=== PATIENT | female | born 1940 | race Caucasian/White ===

== ENCOUNTER 2023-09-19 11:42 | Inpatient (IN) | payer MEDICARE, SELFPAY ==
[2023-09-19 12:47] LABS: #Basophils 0.1 thou/uL (0.0-0.2); #Eosinphils 0.1 thou/uL (0.0-0.7); #Monocytes 0.6 thou/uL (0.11-0.59); #Neutrophils 5.4 thou/uL (1.40-6.50); %Basophils 0.7 % (0.0-1.0); %Eosinophils 1.6 % (0.0-10.0); %Lymphocytes 19.2 % (21.0-51.0); %Monocytes 7.2 % (0.0-10.0); %Neutrophils 70.9 % (42.0-75.0); Hematocrit 43.8 % (36.0-47.0); Hemoglobin 14.5 g/dL (12.0-16.0); Mean Corpuscular HGB CONC 33.1 g/dL (32.0-36.0); Mean Corpuscular Hemoglobin 31.3 pg (27.0-31.0); Mean Corpuscular Volume 94.4 fl (78.0-98.0); Mean Platelet Volume 11.4 fL (7.4-10.4); Platelet Count 205 10x3/uL (130-400); RBC Distribution Width 12.7 % (11.5-14.5); Red Blood Cell (RBC) Count 4.64 mill/uL (4.20-5.40); White Blood Cell (WBC) Count 7.6 10x3/uL (4.8-10.8)
[2023-09-19] MEDS ORDERED: Morphine 4 MG/ML VIAL ONE (13:21)
[2023-09-19] MEDS ORDERED: Boostrix 0.5 ML (Tdap) VIAL (>/=7 yrs of age) ONE (13:21)
[2023-09-19 13:22] LABS: ALT (SGPT) 15 U/L (8-55); AST (SGOT) 25 U/L (5-34); Albumin 3.8 g/dL (3.4-4.8); Alkaline Phosphatase 61 U/L (40-110); Anion Gap 13 mmol/L (10-20); BUN (Urea Nitrogen) 18 mg/dL (9.8-20.1); Bilirubin, Total 1.5 mg/dL (0.2-1.2); Calc. Creatinine Clearance 0 mL/min (70-130); Calcium 9.4 mg/dL (7.8-10.44); Carbon Dioxide 26 mmol/L (23-31); Chloride 105 mmol/L (98-107); Estimated GFR 69; Globulin 3.1 g/dL (2.4-3.5); Glucose 85 mg/dL (83-110); Potassium 4.3 mmol/L (3.5-5.1); Protein, Total 6.9 g/dL (5.8-8.1); Sodium 140 mmol/L (136-145)
[2023-09-19] MEDS ORDERED: Glucagon 1 MG/ML KIT IM PRN (15:00)
[2023-09-19] MEDS ORDERED: Ondansetron PF 4 MG/2 ML Vial IVP PRN (15:00)
[2023-09-19] MEDS ORDERED: Ipratropium/Albuterol 3 ML NEB NEB PRN (15:00)
[2023-09-19] MEDS ORDERED: Acetaminophen 325 MG TAB PO PRN (15:00)
[2023-09-19] MEDS ORDERED: Ondansetron ODT 4 MG TAB PO PRN (15:00)
[2023-09-19] MEDS ORDERED: Dextrose 5% in Water 1,000 ML IV PRN (15:00)
[2023-09-19] MEDS ORDERED: Dextrose 50% Abboject 50 ML SYRINGE SLOW IVP PRN (15:00)
[2023-09-19] MEDS ORDERED: hydrALAZINE 20 MG/ML VIAL SLOW IVP PRN (17:27)
[2023-09-19] MEDS: Sodium Chloride 0.9% 1,000 ML IV SCH (19:39)
[2023-09-19 21:52] VITALS: BMI 21.7
[2023-09-20 04:46] LABS: #Basophils 0.1 thou/uL (0.0-0.2); #Eosinphils 0.1 thou/uL (0.0-0.7); #Monocytes 0.9 thou/uL (0.11-0.59); #Neutrophils 8.2 thou/uL (1.40-6.50); %Basophils 0.5 % (0.0-1.0); %Eosinophils 0.9 % (0.0-10.0); %Lymphocytes 11.4 % (21.0-51.0); %Monocytes 8.8 % (0.0-10.0); %Neutrophils 78.1 % (42.0-75.0); Hematocrit 42.8 % (36.0-47.0); Hemoglobin 13.4 g/dL (12.0-16.0); Mean Corpuscular HGB CONC 31.3 g/dL (32.0-36.0); Mean Corpuscular Hemoglobin 31.4 pg (27.0-31.0); Mean Platelet Volume 11.5 fL (7.4-10.4); Platelet Count 154 10x3/uL (130-400); RBC Distribution Width 12.5 % (11.5-14.5); Red Blood Cell (RBC) Count 4.27 mill/uL (4.20-5.40); White Blood Cell (WBC) Count 10.5 10x3/uL (4.8-10.8)
[2023-09-20 05:03] LABS: Anion Gap 15 mmol/L (10-20); BUN (Urea Nitrogen) 15 mg/dL (9.8-20.1); Calc. Creatinine Clearance 56 mL/min (70-130); Calcium 8.7 mg/dL (7.8-10.44); Carbon Dioxide 21 mmol/L (23-31); Chloride 105 mmol/L (98-107); Estimated GFR 83; Glucose 85 mg/dL (83-110); Potassium 4.6 mmol/L (3.5-5.1); Sodium 136 mmol/L (136-145)
[2023-09-20 05:20] LABS: Mean Corpuscular Volume 100.2 fl (78.0-98.0)
[2023-09-20] MEDS ORDERED: fentaNYL PF 100 MCG/2 ML SYRINGE ONE (07:31)
[2023-09-20] MEDS ORDERED: PROPOFOL 20 ML ONE (07:31)
[2023-09-20] MEDS ORDERED: Lidocaine 2% PF 5 ML VIAL ONE (07:32)
[2023-09-20] MEDS ORDERED: Phenylephrine 40 MG/NS 250 ML 250 ML ONE (07:34)
[2023-09-20] MEDS ORDERED: Rocuronium Bromide 10 MG/ML (10ML VIAL) ONE (07:44)
[2023-09-20] MEDS ORDERED: Non-Formulary Item 1 EACH (Albuterol Sulfate [Proair Digihaler] 90 MCG Aer.Pw.Bas) INH PRN (07:59)
[2023-09-20] MEDS ORDERED: CEFAZOLIN 2 GM in Sodium Chloride 0.9% 100 ML IVPB SCH (08:00)
[2023-09-20] MEDS ORDERED: ePHEDrine Sulfate 50 MG/10 ML VIAL ONE (08:23)
[2023-09-20] MEDS ORDERED: CEFAZOLIN 1 GM VIAL ONE (08:34)
[2023-09-20] MEDS: Memantine 10 MG TAB PO SCH ×2 (09:00→20:07)
[2023-09-20] MEDS ORDERED: Propranolol 10 MG TAB PO SCH (09:00)
[2023-09-20] MEDS ORDERED: FLU VACC QS2023(65UP)/MF59C/PF 60 MCG/0.5 ML SYRINGE IM ONE (09:00)
[2023-09-20] MEDS ORDERED: SUGAMMADEX SODIUM 200 MG/2 ML VIAL ONE (09:24)
[2023-09-20] MEDS ORDERED: Promethazine HCl 25 MG/ML VIAL IM PRN (09:39)
[2023-09-20] MEDS ORDERED: Ondansetron HCl/PF 4 MG/2 ML Vial IVP PRN (09:39)
[2023-09-20] MEDS ORDERED: Electrolyte Replacement Protocol FS PRN (11:45)
[2023-09-20] MEDS ORDERED: Electrolyte Replacement Protocol 1 EACH FS SCH (11:45)
[2023-09-20] MEDS ORDERED: Ibuprofen 600 MG TAB PO PRN (11:46)
[2023-09-20] MEDS: Sodium Chloride 0.9% 1,000 ML IV SCH (12:52)
[2023-09-20 13:07] LABS: Magnesium 2.7 mg/dL (1.6-2.6)
[2023-09-20 13:23] LABS: Free T4 (Free Thyroxine) 1.29 ng/dL (0.70-1.48)
[2023-09-20] MEDS: CEFAZOLIN 2 GM in Sodium Chloride 0.9% 100 ML IVPB SCH (17:40)
[2023-09-20] MEDS: Atorvastatin Calcium 40 MG TAB PO SCH (20:07)
[2023-09-21] MEDS: CEFAZOLIN 2 GM in Sodium Chloride 0.9% 100 ML IVPB SCH (05:10)
[2023-09-21] MEDS: Propranolol 10 MG TAB PO SCH ×3 (05:55→21:57)
[2023-09-21] MEDS ORDERED: Levothyroxine Sodium 112 MCG TAB PO SCH (06:00)
[2023-09-21 06:07] LABS: Anion Gap 14 mmol/L (10-20); BUN (Urea Nitrogen) 18 mg/dL (9.8-20.1); Calc. Creatinine Clearance 48 mL/min (70-130); Calcium 8.3 mg/dL (7.8-10.44); Carbon Dioxide 20 mmol/L (23-31); Chloride 106 mmol/L (98-107); Estimated GFR 69; Glucose 123 mg/dL (83-110); Magnesium 1.9 mg/dL (1.6-2.6); Potassium 3.6 mmol/L (3.5-5.1); Sodium 136 mmol/L (136-145)
[2023-09-21] MEDS ORDERED: Magnesium 2 GM/50 ML(in water) 2 GM in Premix 1 BAG IVPB SCH (08:00)
[2023-09-21] MEDS ORDERED: traMADol HCl 50 MG TAB PO PRN (08:17)
[2023-09-21] MEDS: Acetaminophen 500 MG TAB PO SCH ×3 (08:57→21:58)
[2023-09-21] MEDS: Polyethylene Glycol 3350 17 GM Packet PO SCH (08:57)
[2023-09-21] MEDS: Lactulose 20 GM (30 mL) UDCUP PO SCH ×3 (08:59→21:59)
[2023-09-21] MEDS: Senokot S 8.6-50 MG TAB PO SCH ×2 (08:59→21:59)
[2023-09-21] MEDS: Gabapentin 100 MG CAP PO SCH ×2 (09:00→21:57)
[2023-09-21] MEDS: Sodium Chloride 0.9% 1,000 ML IV SCH (09:01)
[2023-09-21] MEDS: Memantine 10 MG TAB PO SCH ×2 (09:02→21:57)
[2023-09-21] MEDS: Potassium Chloride 20 MEQ in Premix 1 BAG IVPB SCH ×2 (18:04→21:59)
[2023-09-21] MEDS: Levothyroxine Sodium 100 MCG TAB PO SCH (20:26)
[2023-09-21] MEDS: Atorvastatin Calcium 40 MG TAB PO SCH (21:57)
[2023-09-22 05:15] LABS: Anion Gap 12 mmol/L (10-20); BUN (Urea Nitrogen) 14 mg/dL (9.8-20.1); Calc. Creatinine Clearance 55 mL/min (70-130); Calcium 8.3 mg/dL (7.8-10.44); Carbon Dioxide 18 mmol/L (23-31); Chloride 112 mmol/L (98-107); Estimated GFR 82; Glucose 98 mg/dL (83-110); Magnesium 2.5 mg/dL (1.6-2.6); Potassium 4.1 mmol/L (3.5-5.1); Sodium 138 mmol/L (136-145)
[2023-09-22] MEDS: Levothyroxine Sodium 100 MCG TAB PO SCH (05:27)
[2023-09-22] MEDS: Acetaminophen 500 MG TAB PO SCH ×4 (05:27→20:11)
[2023-09-22 08:11] LABS: #Eosinphils 0.1 thou/uL (0.0-0.7); #Monocytes 0.9 thou/uL (0.11-0.59); #Neutrophils 7.5 thou/uL (1.40-6.50); %Basophils 0.3 % (0.0-1.0); %Eosinophils 1.3 % (0.0-10.0); %Lymphocytes 11.1 % (21.0-51.0); %Monocytes 9.2 % (0.0-10.0); %Neutrophils 77.8 % (42.0-75.0); Hematocrit 32.2 % (36.0-47.0); Hemoglobin 10.2 g/dL (12.0-16.0); Mean Corpuscular HGB CONC 31.7 g/dL (32.0-36.0); Mean Corpuscular Hemoglobin 31.9 pg (27.0-31.0); Mean Corpuscular Volume 100.6 fl (78.0-98.0); Platelet Count 137 10x3/uL (130-400); RBC Distribution Width 12.8 % (11.5-14.5); White Blood Cell (WBC) Count 9.7 10x3/uL (4.8-10.8)
[2023-09-22] MEDS: Memantine 10 MG TAB PO SCH ×2 (08:36→20:11)
[2023-09-22] MEDS: Gabapentin 100 MG CAP PO SCH ×2 (08:36→20:11)
[2023-09-22] MEDS: Propranolol 10 MG TAB PO SCH ×2 (08:37→20:11)
[2023-09-22] MEDS: Polyethylene Glycol 3350 17 GM Packet PO SCH (08:37)
[2023-09-22] MEDS: Senokot S 8.6-50 MG TAB PO SCH ×2 (08:37→20:11)
[2023-09-22] MEDS: Lactulose 20 GM (30 mL) UDCUP PO SCH ×3 (08:38→20:45)
[2023-09-22] MEDS: Aspirin 81 mg Enteric Coated Tablet PO SCH ×2 (09:34→20:11)
[2023-09-22] MEDS: traMADol HCl 50 MG TAB PO SCH ×3 (13:03→23:04)
[2023-09-22] MEDS: Atorvastatin Calcium 40 MG TAB PO SCH (20:11)
[2023-09-23] MEDS: Acetaminophen 500 MG TAB PO SCH ×3 (02:44→16:11)
[2023-09-23] MEDS: Levothyroxine Sodium 100 MCG TAB PO SCH (05:40)
[2023-09-23] MEDS: traMADol HCl 50 MG TAB PO SCH ×2 (05:40→12:43)
[2023-09-23 06:24] LABS: Anion Gap 7 mmol/L (10-20); BUN (Urea Nitrogen) 15 mg/dL (9.8-20.1); Calc. Creatinine Clearance 61 mL/min (70-130); Calcium 8.1 mg/dL (7.8-10.44); Carbon Dioxide 24 mmol/L (23-31); Chloride 109 mmol/L (98-107); Estimated GFR 86; Glucose 91 mg/dL (83-110); Potassium 3.9 mmol/L (3.5-5.1); Sodium 136 mmol/L (136-145)
[2023-09-23] MEDS ORDERED: Magnesium 2 GM/50 ML(in water) 2 GM in Premix 1 BAG IVPB SCH (08:00)
[2023-09-23] MEDS: Polyethylene Glycol 3350 17 GM Packet PO SCH (09:44)
[2023-09-23] MEDS: Propranolol 10 MG TAB PO SCH (09:45)
[2023-09-23] MEDS: Senokot S 8.6-50 MG TAB PO SCH (09:45)
[2023-09-23] MEDS: Lactulose 20 GM (30 mL) UDCUP PO SCH ×2 (09:45→16:14)
[2023-09-23] MEDS: Aspirin 81 mg Enteric Coated Tablet PO SCH (09:46)
[2023-09-23] MEDS: Memantine 10 MG TAB PO SCH (09:46)
[2023-09-23] MEDS: Gabapentin 100 MG CAP PO SCH (09:46)
[2023-09-23 12:53] VITALS: BP 127/69; TEMP 97.9
== END 2023-09-23 16:20 | DRG 481 ==
LOC: ERS 11:42 → SJJU 15:00 → OBSVTOIN 15:00 → 2NO 19:33 → SURG A 09-22 16:56
PROVIDERS: ADMIT Surgery; ATTEND Surgery
PROC: 0QS606Z Reposition Right Upper Femur with Intramedullary Internal Fixation Device, Open Approach (ICD-10-PCS; principal; 2023-09-20)
PROC: 3E033XZ Introduction of Vasopressor into Peripheral Vein, Percutaneous Approach (ICD-10-PCS; 2023-09-20)
DX: S72.144A Nondisplaced intertrochanteric fracture of right femur, initial encounter for closed fracture (principal); D62 Acute posthemorrhagic anemia; I48.92 Unspecified atrial flutter; S22.029A Unspecified fracture of second thoracic vertebra, initial encounter for closed fracture; Z66 Do not resuscitate; S01.91XA Laceration without foreign body of unspecified part of head, initial encounter; S09.90XA Unspecified injury of head, initial encounter; I10 Essential (primary) hypertension; E03.9 Hypothyroidism, unspecified; F03.90 Unspecified dementia, unspecified severity, without behavioral disturbance, psychotic disturbance, mood disturbance, and anxiety; G89.11 Acute pain due to trauma; S42.009D Fracture of unspecified part of unspecified clavicle, subsequent encounter for fracture with routine healing; S22.49XD Multiple fractures of ribs, unspecified side, subsequent encounter for fracture with routine healing
CPT/HCPCS: 36415; 36416; 70450; 71045; 72125; 72170; 72192; 80048; 80053; 82607; 83735; 84439; 84443; 84481; 85025; 86850; 86900; 86901; 90471; 90715; 93005; 93010; 93306; 96374; C1713; J0690; J2001; J2270; J2704; J3475; J3480; J3490; J7050

== ENCOUNTER 2023-10-30 08:30 | Inpatient (IN) | payer MEDICARE ==
[2023-10-30] MEDS ORDERED: Ondansetron PF 4 MG/2 ML Vial ONE (09:03)
[2023-10-30 09:08] LABS: #Monocytes 0.6 thou/uL (0.11-0.59); #Neutrophils 17.7 thou/uL (1.40-6.50); %Basophils 0.2 % (0.0-1.0); %Lymphocytes 2.6 % (21.0-51.0); %Monocytes 3.1 % (0.0-10.0); %Neutrophils 93.5 % (42.0-75.0); Hematocrit 37.8 % (36.0-47.0); Hemoglobin 12.2 g/dL (12.0-16.0); Mean Corpuscular HGB CONC 32.3 g/dL (32.0-36.0); Mean Corpuscular Hemoglobin 30.5 pg (27.0-31.0); Mean Corpuscular Volume 94.5 fl (78.0-98.0); Mean Platelet Volume 11.5 fL (7.4-10.4); Platelet Count 268 10x3/uL (130-400); RBC Distribution Width 14.4 % (11.5-14.5); White Blood Cell (WBC) Count 18.9 10x3/uL (4.8-10.8)
[2023-10-30 09:21] LABS: PTT 33.1 sec (22.9-36.1)
[2023-10-30 09:22] LABS: Bacteria/HPF None Seen HPF (None Seen); Bilirubin Negative (Negative); Blood, Urine Negative (Negative); CAUTI Indications for Culture Alt mental st,lethar; Clarity Turbid (Clear); Glucose, Urine (Dipstick) Normal (Negative); Ketone, Urine Negative (Negative); Leukocyte Negative Leu/uL (Negative); Nitrite Negative (Negative); Protein, Urine (Dipstick) 20 mg/dL (Neg-Trace); Specific Gravity, Urine 1.021 (1.002-1.036); Squamous Epithelial 0-3 HPF (0-3)
[2023-10-30 09:33] LABS: RBC/HPF None Seen HPF (0-3)
[2023-10-30 09:34] LABS: WBC/HPF 0-3 HPF (0-3)
[2023-10-30 09:36] LABS: Urine Culture Reflex No No
[2023-10-30 09:37] LABS: ALT (SGPT) 685 U/L (8-55); AST (SGOT) 742 U/L (5-34); Albumin 3.3 g/dL (3.4-4.8); Alkaline Phosphatase 581 U/L (40-110); Anion Gap 14 mmol/L (10-20); BUN (Urea Nitrogen) 16 mg/dL (9.8-20.1); Bilirubin, Total 2.8 mg/dL (0.2-1.2); Calc. Creatinine Clearance 0 mL/min (70-130); Calcium 8.8 mg/dL (7.8-10.44); Carbon Dioxide 22 mmol/L (23-31); Chloride 102 mmol/L (98-107); Estimated GFR 57; Globulin 3.5 g/dL (2.4-3.5); Glucose 160 mg/dL (83-110); Protein, Total 6.8 g/dL (5.8-8.1); Sodium 133 mmol/L (136-145); Troponin I Less than 0.010 ng/mL (< 0.028)
[2023-10-30] MEDS ORDERED: Vancomycin 1 GM/200 ML (FROZEN) BAG ONE (09:47)
[2023-10-30] MEDS ORDERED: Sodium Chloride 0.9% 100 ML ONE (09:47)
[2023-10-30] MEDS ORDERED: Cefepime 2 GM VIAL ONE (09:47)
[2023-10-30] MEDS ORDERED: Promethazine HCl 25 MG/ML VIAL IM PRN (12:50)
[2023-10-30] MEDS ORDERED: Ondansetron PF 4 MG/2 ML Vial IVP PRN (12:56)
[2023-10-30] MEDS ORDERED: Iopamidol-370 76% 500 ML MDV (1 ML CHARGE) ONE (14:12)
[2023-10-30] MEDS: Piperacillin/Tazobactam 3.375 GM in Sodium Chloride 0.9% 100 ML IVPB SCH ×3 (14:47→19:58)
[2023-10-30] MEDS: Sodium Chloride 0.9% 1,000 ML IV SCH (14:47)
[2023-10-30 14:58] LABS: ALT (SGPT) 586 U/L (8-55); AST (SGOT) 575 U/L (5-34); Albumin 3.3 g/dL (3.4-4.8); Alkaline Phosphatase 524 U/L (40-110); Bilirubin, Direct 2.1 mg/dL (0.1-0.3); Bilirubin, Total 3.3 mg/dL (0.2-1.2); Lipase 103 U/L (8-78); Protein, Total 6.2 g/dL (5.8-8.1)
[2023-10-30] MEDS ORDERED: FLU VACC QS2023(65UP)/MF59C/PF 60 MCG/0.5 ML SYRINGE IM ONE (17:30)
[2023-10-30] MEDS: Fluconazole 100 MG TAB PO SCH (18:30)
[2023-10-30] MEDS: Memantine 10 MG TAB PO SCH (19:59)
[2023-10-30] MEDS: Famotidine/PF 20 mg/2ml Vial SLOW IVP SCH (19:59)
[2023-10-31 05:22] LABS: #Eosinphils 0.1 thou/uL (0.0-0.7); #Monocytes 0.5 thou/uL (0.11-0.59); #Neutrophils 7.1 thou/uL (1.40-6.50); %Basophils 0.3 % (0.0-1.0); %Eosinophils 0.8 % (0.0-10.0); %Neutrophils 80.6 % (42.0-75.0); Hematocrit 33.7 % (36.0-47.0); Hemoglobin 10.4 g/dL (12.0-16.0); Mean Corpuscular HGB CONC 30.9 g/dL (32.0-36.0); Mean Corpuscular Hemoglobin 30.3 pg (27.0-31.0); Mean Platelet Volume 11.4 fL (7.4-10.4); Platelet Count 220 10x3/uL (130-400); RBC Distribution Width 14.7 % (11.5-14.5); Red Blood Cell (RBC) Count 3.43 mill/uL (4.20-5.40); White Blood Cell (WBC) Count 8.8 10x3/uL (4.8-10.8)
[2023-10-31] MEDS: Levothyroxine Sodium 100 MCG TAB PO SCH (05:32)
[2023-10-31 05:35] LABS: ALT (SGPT) 430 U/L (8-55); AST (SGOT) 371 U/L (5-34); Acetaminophen Less than 10 mcg/mL (10.0-30.0); Albumin 2.9 g/dL (3.4-4.8); Alkaline Phosphatase 396 U/L (40-110); Anion Gap 9 mmol/L (10-20); BUN (Urea Nitrogen) 10 mg/dL (9.8-20.1); Bilirubin, Direct 1.6 mg/dL (0.1-0.3); Bilirubin, Total 2.2 mg/dL (0.2-1.2); Calc. Creatinine Clearance 47 mL/min (70-130); Calcium 8.3 mg/dL (7.8-10.44); Carbon Dioxide 24 mmol/L (23-31); Chloride 109 mmol/L (98-107); Estimated GFR 69; Glucose 89 mg/dL (83-110); Iron 30 ug/dL (50-170); Iron Binding Capacity, Total 176 mcg/dL (265-497); Lipase 47 U/L (8-78); Potassium 3.9 mmol/L (3.5-5.1); Protein, Total 5.5 g/dL (5.8-8.1); Sodium 138 mmol/L (136-145)
[2023-10-31 05:36] LABS: Immunoglob - G (Total IgG) 983 mg/dL (Not Available); Immunoglob - M (Total IgM) 184 mg/dL (33-293)
[2023-10-31 05:41] LABS: Mean Corpuscular Volume 98.3 fl (78.0-98.0)
[2023-10-31 06:05] LABS: HBCM Index 0.12 S/CO (0-0.79); HBSAg Index 0.27 S/CO (0-0.99); Hep A IgM AB Non-Reactive S/CO (NonReactive); Hep A IgM S/CO 0.11 S/CO (0-0.79); Hep B Surf Ag Non-Reactive S/CO (NonReactive); Hep C IgG Ab Non-Reactive S/CO (NonReactive); Hep C Index 0.19 S/CO (0-0.79); Hepatitis B Core IgM Abs Non-Reactive S/CO (NonReactive)
[2023-10-31 06:28] LABS: Ferritin 2456.54 ng/mL (10-291)
[2023-10-31] MEDS: Atorvastatin Calcium 40 MG TAB PO SCH (09:05)
[2023-10-31] MEDS: Fluconazole 100 MG TAB PO SCH (09:05)
[2023-10-31] MEDS: Propranolol 10 MG TAB PO SCH (20:04)
[2023-10-31] MEDS: Gabapentin 100 MG CAP PO SCH (20:05)
[2023-11-01 04:16] LABS: #Eosinphils 0.1 thou/uL (0.0-0.7); #Monocytes 0.6 thou/uL (0.11-0.59); #Neutrophils 5.7 thou/uL (1.40-6.50); %Basophils 0.4 % (0.0-1.0); %Eosinophils 1.7 % (0.0-10.0); %Lymphocytes 16.7 % (21.0-51.0); %Monocytes 7.1 % (0.0-10.0); %Neutrophils 73.7 % (42.0-75.0); Hematocrit 34.6 % (36.0-47.0); Hemoglobin 10.9 g/dL (12.0-16.0); Mean Corpuscular HGB CONC 31.5 g/dL (32.0-36.0); Mean Corpuscular Hemoglobin 30.6 pg (27.0-31.0); Mean Corpuscular Volume 97.2 fl (78.0-98.0); Mean Platelet Volume 11.7 fL (7.4-10.4); Platelet Count 244 10x3/uL (130-400); RBC Distribution Width 14.2 % (11.5-14.5); Red Blood Cell (RBC) Count 3.56 mill/uL (4.20-5.40); White Blood Cell (WBC) Count 7.8 10x3/uL (4.8-10.8)
[2023-11-01 04:44] LABS: ALT (SGPT) 300 U/L (8-55); AST (SGOT) 204 U/L (5-34); Alkaline Phosphatase 349 U/L (40-110); Anion Gap 9 mmol/L (10-20); BUN (Urea Nitrogen) 6 mg/dL (9.8-20.1); Bilirubin, Total 1.7 mg/dL (0.2-1.2); Calc. Creatinine Clearance 50 mL/min (70-130); Calcium 8.2 mg/dL (7.8-10.44); Carbon Dioxide 21 mmol/L (23-31); Chloride 109 mmol/L (98-107); Estimated GFR 76; Globulin 2.7 g/dL (2.4-3.5); Glucose 87 mg/dL (83-110); Potassium 3.3 mmol/L (3.5-5.1); Protein, Total 5.7 g/dL (5.8-8.1); Sodium 136 mmol/L (136-145)
[2023-11-01] MEDS: Potassium Chloride 20 MEQ TAB PO SCH (09:44)
[2023-11-01] MEDS: Lisinopril 10 MG TAB PO SCH (09:45)
[2023-11-01] MEDS: Aspirin Chewable 81 MG TAB PO SCH (09:45)
[2023-11-01] MEDS: Sodium Chloride 0.9% 1,000 ML IV SCH (09:50)
[2023-11-02 06:24] LABS: ALT (SGPT) 211 U/L (8-55); AST (SGOT) 106 U/L (5-34); Alkaline Phosphatase 304 U/L (40-110); Anion Gap 10 mmol/L (10-20); BUN (Urea Nitrogen) 5 mg/dL (9.8-20.1); Bilirubin, Total 1.1 mg/dL (0.2-1.2); Calc. Creatinine Clearance 53 mL/min (70-130); Calcium 8.5 mg/dL (7.8-10.44); Carbon Dioxide 23 mmol/L (23-31); Chloride 109 mmol/L (98-107); Estimated GFR 81; Globulin 2.9 g/dL (2.4-3.5); Glucose 84 mg/dL (83-110); Potassium 3.6 mmol/L (3.5-5.1); Protein, Total 5.9 g/dL (5.8-8.1); Sodium 138 mmol/L (136-145)
[2023-11-02 13:33] LABS: ANA Symphony (Qualitative) Negative (Negative); ANA Symphony (Quantitative) 0.4 Ratio (< 0.7 Negative); EliA Vaculitis New Method **** NEW METHOD ****; Mitochondrial Ab 1.1 U/mL (<4 Negative); dsDNA IgG Antibody 3.6 IU/mL (<10 Negative)
[2023-11-03 05:47] LABS: ALT (SGPT) 170 U/L (8-55); AST (SGOT) 76 U/L (5-34); Alkaline Phosphatase 284 U/L (40-110); Bilirubin, Direct 0.6 mg/dL (0.1-0.3); Bilirubin, Total 1.3 mg/dL (0.2-1.2); Protein, Total 6.5 g/dL (5.8-8.1)
[2023-11-03 06:22] LABS: Albumin 3.3 g/dL (3.4-4.8)
[2023-11-03 11:41] VITALS: BP 136/72; TEMP 97.4
== END 2023-11-03 14:01 | disposition home or self-care (01) | DRG 871 ==
LOC: ERS 08:30 → SURG A 13:52
PROVIDERS: ADMIT Emergency Medicine; ATTEND Family Medicine
PROC: 3E03329 Introduction of Other Anti-infective into Peripheral Vein, Percutaneous Approach (ICD-10-PCS; principal; 2023-10-30)
PROC: 0T9B70Z Drainage of Bladder with Drainage Device, Via Natural or Artificial Opening (ICD-10-PCS; 2023-10-30)
DX: A41.9 Sepsis, unspecified organism (principal); G93.41 Metabolic encephalopathy; K85.90 Acute pancreatitis without necrosis or infection, unspecified; R74.01 Elevation of levels of liver transaminase levels; F03.90 Unspecified dementia, unspecified severity, without behavioral disturbance, psychotic disturbance, mood disturbance, and anxiety; I10 Essential (primary) hypertension; E03.9 Hypothyroidism, unspecified; Z66 Do not resuscitate; Z79.82 Long term (current) use of aspirin; Z79.899 Other long term (current) drug therapy; Z98.890 Other specified postprocedural states
CPT/HCPCS: 36415; 36416; 51701; 70450; 71260; 72125; 74177; 76705; 80048; 80053; 80074; 80076; 80143; 81001; 82728; 83516; 83540; 83550; 83605; 83690; 84145; 84484; 85025; 85610; 85730; 86015; 86038; 86225; 87040; 93005; 94760; 96365; 96366; 96367; 96375; 80307; J0692; J2405; J2543; J3370-JW; J3490; J7050; Q9967; S0028